=== PATIENT | female | born 1995 | race Caucasian/White ===

== ENCOUNTER 2024-08-23 20:59 | Emergency (ER) | payer BC, SELFPAY ==
[2024-08-23 21:11] VITALS: BP 131/70; PULSE 78; RESP 16; TEMP 37.2; O2SAT 100; BMI 23.2
[2024-08-23 21:34] LABS: Appearance Urine UA CLEAR; Bilirubin Urine UA NEGATIVE (NEGATIVE); Color Urine UA YELLOW; Glucose Urine UA NEGATIVE (Negative); Ketones Urine UA NEGATIVE (NEGATIVE); Leukocyte Esterase Urine UA 1+ (NEGATIVE); Nitrite Urine UA NEGATIVE (Negative); Occult Blood Urine UA TRACE-INTACT (Negative); Protein Urine UA NEGATIVE (Negative); Urobilinogen Urine UA 0.2 E.U./dL (0.2)
[2024-08-23 21:42] LABS: Bacteria Urine Occasional (0-1); RBC Urine 0-1/HPF (0-5/HPF); Squamous Epithelial Cell Urine 1-5 /HPF (0-5/HPF); Urine Volume 10mL (spun); WBC Urine 1-5/HPF (0-5/HPF)
[2024-08-23 21:43] LABS: Culture Indicated Urine Specimen Cultured
--- NOTE | 2024-08-24 01:15 | ED_ITS ---
HPI - Female Genitourinary General Chief complaint: Urogenital-Female Stated complaint: poss UTI, cramping lower back Time Seen by Provider: 08/24/24 01:15 Source: patient Mode of arrival: Ambulatory History of Present Illness HPI Narrative: 29-year-old female without any significant past medical history comes into the ED for complaints of urinary tract infection, she states that this started proximally 12 days ago with lower urinary symptoms feels like it is now radiating to her back the last 3 days. She describes the urinary symptoms as dysuria and frequency. She denies any other systemic symptoms such as fever chills nausea vomiting abdominal pain or any other GI/ symptoms at this time. Related Data Previous Rx's Medication Instructions Recorded cephalexin 500 mg capsule 500 mg PO TID 7 days #21 caps 08/24/24 Allergies Allergy/AdvReac Type Severity Reaction Status Date / Time No Known Drug Allergies Allergy Verified 08/23/24 21:11 Review of Systems Review of Systems Narrative: General: Denies fever, chills, weight loss HEENT: Denies headache, eye drainage, eye irritation, head trauma, sore throat, voice change Cardiovascular: Denies any chest pain, palpitations, shortness of breath, tachycardia Respiratory: Denies any shortness of breath, cough, wheeze, stridor GI/: Positive urinary frequency dysuria, Denies any abdominal pain, nausea, vomiting, diarrhea, bright red blood per rectum, melanotic stools, hematuria MSK: Denies any joint pain, muscle pains, swelling Skin: Denies any rashes, lesions, discoloration Neuro: Denies any headache, lightheadedness, dizziness, fainting, weakness Psych: Denies SI/HI Exam Narrative Exam Narrative: General: Cooperative, comfortable, well-developed, not in acute distress HEENT: Normocephalic, atraumatic, PERRLA, normal sclera, eyelids normal, Neck: Active full range of motion, atraumatic Chest: Normal to inspection, negative crepitus, no overlying erythema ecchymosis Respiratory: Normal respiratory effort, not in acute respiratory distress, clear to auscultation bilaterally negative cough, wheeze, tachypnea, rhonchi, rales Cardiology: Regular rate rhythm negative gallop, murmur, rubs GI/: Normal to inspection, soft, nonrigid, no tenderness to palpation, negative CVA tenderness exam deferred MSK: Full range of active range of motion of all 4 extremities, atraumatic Skin: No rashes lesions noted Neuro: Alert awake oriented x3, moves all 4 extremities spontaneously, cranial nerves intact, able to answer all questions appropriately follows commands appropriately Psych: Cooperative, negative suicidal or homicidal ideations Initial Vital Signs Initial Vital Signs: Vital Signs Temperature 98.9 F 08/23/24 21:11 Pulse Rate 78 08/23/24 21:11 Respiratory Rate 16 08/23/24 21:11 Blood Pressure 131/70 08/23/24 21:11 Pulse Oximetry 100 08/23/24 21:11 Oxygen Delivery Method Room Air 08/23/24 21:11 Course Orders Ordered: ED Orders 08/23/24 21:20 Urinalysis and Microscopic Stat Urine Culture Stat Ondansetron HCl (Ondansetron 4 Mg/2 Ml Inj) 4 mg IV NOW PRN PRN Reason: Nausea And Vomiting Ondansetron HCl (Ondansetron 4 Mg Odt) 4 mg SL NOW PRN PRN Reason: Nausea And Vomiting Vital Signs Vital signs: Vital Signs - 8 hr 08/23/24 21:11 Temperature 98.9 F Pulse Rate 78 Respiratory Rate 16 Blood Pressure 131/70 Pulse Oximetry 100 Oxygen Delivery Method Room Air MDM - Female Genitourinary Differential Diagnosis Differential diagnosis: Likely urinary tract infection and other (Pyelonephritis) Lab Data Labs: Lab Results 08/23/24 Range/Units 21:20 Urine Color Yellow Urine Appearance Clear Urine pH 6.0 (4.5-8.0) Ur Specific [place] 1.010 (1.000-1.035) Urine Protein Negative (Negative) Urine Glucose (UA) Negative (Negative) g/dL Urine Ketones Negative (NEGATIVE) Urine Occult Blood Trace-intact (Negative) Urine Nitrate Negative (Negative) Urine Bilirubin Negative (NEGATIVE) Urine Urobilinogen 0.2 (0.2) E.U./dL Ur Leukocyte Esterase 1+ H (NEGATIVE) Urine RBC 0-1/hpf (0-5/HPF) Urine WBC 1-5/hpf (0-5/HPF) Ur Squamous Epith Cells 1-5 /hpf (0-5/HPF) Urine Bacteria Occasional (0-1) (None) Ur Culture Indicated? Specimen cultured Vol Urine Centrifuged 10ml (spun) MDM Narrative Medical decision making narrative: 29-year-old female presenting for lower urinary symptoms described as dysuria frequency ongoing persistent for the past 10 days, she states that over the past 3 days she feels like it is radiating up into her bilateral flank, patient with negative CVA tenderness, urinalysis with positive leuk esterase given with urinary symptoms and positive leukocyte esterase we will treat for an acute urinary tract infection, patient afebrile well-appearing nontoxic no additional lab work imaging indicated that time she was given strict return precautions she verbalized understanding of this and agrees to being discharged home with outpatient follow up Discharge Plan Departure Patient Disposition: Home Clinical Impression: Urinary tract infection Instructions: DI for Urinary Retention in Women Activity Restrictions/Additional Instructions: Please follow up with your primary care doctor Please read the discharge instructions sheet carefully and bring all papers to all doctor follow-up visits, as it may contain information that your doctor may want to see. Disease processes change and evolve, if your symptoms worsen or if you develop any new symptoms that are concerning to you please return for evaluation. Your evaluation today does not show any evidence of any life- threatening/serious illnesses requiring admission to the hospital or surgery. Please follow-up with your doctor for re-evaluation in approximately 1 day. Seek immediate medical attention for any worrisome symptoms. *If you do not have a primary care provider please contact the [facility] Resource line at [phone]. They will ask some questions about your medical history and help get you set up with a doctor in the community. Prescriptions: New cephalexin 500 mg capsule 500 mg PO TID 7 Days Qty: 21 0RF Stand Alone Forms: Patient Portal/API/Survey
[2024-08-24 01:30] LABS: Pregnancy Test Urine Negative (Negative)
[2024-08-24] MEDS: cephALEXin 250 MG CAPSULE 500 MG PO (01:38)
[2024-08-24 01:45] VITALS: BP 102/66; PULSE 63; RESP 16; O2SAT 98
== END 2024-08-24 01:47 | disposition home or self-care (01) ==
PROVIDERS: Emergency Provider Student in an Organized Health Care Education/Training Program
DX: N39.0 Urinary tract infection, site not specified (principal)
CPT/HCPCS: 81001; 81025; 87077; 87086; 87147; 99283